=== PATIENT | male | born 1930 | race Caucasian/White ===

== ENCOUNTER 2016-05-11 15:24 | Emergency (ER) | payer MEDICARE, OTHER ==
[2016-05-11] MEDS ORDERED: ASPIRIN 81 MG TABLET, CHEWABLE PO ONE (15:33)
--- NOTE | 2016-05-11 15:33 | ER Document Report ---
ED Cardiac - General Stated Complaint: CHEST PAIN Notes: The patient is an 86-year-old male, past medical history A. fib (on diltiazem), lung cancer status post resection, presents from his primary care office after his heart rate was in the 120s. He started to develop left-sided chest pain that was resolved after 1 sublingual nitroglycerin. He received aspirin in the primary care office. He denies nausea, vomiting, shortness of breath, fevers, cough, palpitations, lightheadedness, syncope or rash. TRAVEL OUTSIDE OF THE [place] IN LAST 30 DAYS: No - Related Data Allergies/Adverse Reactions: phytonadione [Phytonadione] Allergy (Unknown, Verified 06/10/15 10:15) Hives Past Medical History - General Information source: Patient - Social History Smoking Status: Former Smoker Family History: Reviewed & Not Pertinent - Past Medical History Cardiac Medical History: Reports: Hx Atrial Fibrillation, Hx Coronary Artery Disease, Hx Heart Attack - 2015, Hx Hypercholesterolemia, Hx Hypertension Pulmonary Medical History: Reports: Hx COPD, Hx Pneumonia Malignancy Medical History: Reports Hx Lung Cancer GI Medical History: Reports: Hx Gastroesophageal Reflux Disease Musculoskeltal Medical History: Reports Hx Arthritis, Reports Hx Musculoskeletal Deformity - back problems, Reports Hx Musculoskeletal Trauma - knee injuries Past Surgical History: Reports: Hx Cardiac Surgery - 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 Denies recent illness. EENT: Denies eye, ear, throat, or mouth pain or symptoms. Denies nasal or sinus congestion. CARDIOVASCULAR: +chest pain, denies syncope, palpitations RESPIRATORY: Denies cough, cold, or chest congestion. Denies shortness of breath, difficulty breathing, or wheezing. GASTROINTESTINAL: Denies abdominal pain. Denies nausea, vomiting, or diarrhea. Denies constipation. GENITOURINARY: Denies difficulty urinating, painful urination, burning, frequency, or blood in urine. MUSCULOSKELETAL: Denies neck or back pain or joint pain or swelling. SKIN: Denies rash or skin lesions. HEMATOLOGIC: Denies easy bruising or bleeding. LYMPHATIC: Denies swollen, enlarged glands. NEUROLOGICAL: Denies altered mental status or loss of consciousness. Denies headache. Denies weakness or paralysis or loss of use of either side. Denies problems with gait or speech. Denies sensory or motor loss. PSYCHIATRIC: Denies anxiety or stress or depression. ALL OTHER SYSTEMS REVIEWED AND NEGATIVE. Physical Exam - Vital signs Vitals: Resp Pulse Ox 13 97 05/11/16 15:53 05/11/16 15:53 BP 147/92, HR 106 (irregular), RR 20, Pulse Ox 98% - Notes Notes: PHYSICAL EXAMINATION: GENERAL: Well-appearing, well-nourished and in no acute distress. HEAD: Atraumatic, normocephalic. EYES: Pupils equal round and reactive to light, extraocular movements intact, sclera anicteric, conjunctiva are normal. ENT: nares patent, oropharynx clear without exudates. Moist mucous membranes. NECK: Normal range of motion, supple without lymphadenopathy LUNGS: Breath sounds clear to auscultation bilaterally and equal. No wheezes rales or rhonchi. HEART: Tachycardic, irregularly irregular, strong distal pulses ABDOMEN: Soft, nontender, normoactive bowel sounds. No guarding, no rebound. No masses appreciated. EXTREMITIES: Normal range of motion, no pitting or edema. No cyanosis. NEUROLOGICAL: Cranial nerves grossly intact. Normal speech, normal gait. Normal sensory, motor, and reflex exams. PSYCH: Normal mood, normal affect. SKIN: Warm, Dry, normal turgor, no rashes or lesions noted. Course - Re-evaluation Re-evalutation: Patient had brief episode of chest pain that quickly resolved. A. fib with RVR resolved after an extra dose of diltiazem. 2 sets of troponins are negative. 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 Offered patient admission, but he would like to follow-up as an outpatient. Given strict return precautions and he understands. - Vital Signs Vital signs: Temp Pulse Resp BP Pulse Ox 98.7 F 16 106/69 92 05/11/16 17:03 05/11/16 17:03 05/11/16 17:03 05/11/16 17:03 - Laboratory Result Diagrams: 05/11/16 15:50 01/06/17 15:50 Laboratory results interpreted by me: 05/11/16 05/11/16 15:50 15:50 WBC 11.0 H RBC 4.02 L Hgb 12.7 L Hct 37.3 L RDW 15.5 H Seg Neutrophils % 87.2 H Lymphocytes % 5.2 L Absolute Neutrophils 9.6 H Sodium 131.8 L Chloride 96 L Creatine Kinase 51 L Total Protein 6.0 L Albumin 3.0 L - Diagnostic Test Radiology reviewed: Image reviewed, Reports reviewed - EKG Interpretation by Me EKG shows normal: QRS Complexes Rate: Tachycardia Rhythm: A.Fib Additional EKG results interpreted by me: Poor baseline. Discharge - Discharge Clinical Impression: A-fib Qualifiers: Atrial fibrillation type: paroxysmal Qualified Code(s): I48.0 - Paroxysmal atrial fibrillation Chest pain Qualifiers: Chest pain type: unspecified Qualified Code(s): R07.9 - Chest pain, unspecified Condition: Good Disposition: HOME, SELF-CARE Additional Instructions: Follow-up with your piano refinisher and primary care physician. Take your diltiazem as instructed. CHEST PAIN OF UNCLEAR CAUSE: The exact cause of your chest pain isn't clear. Fortunately, there is no evidence of a dangerous medical condition. Further testing may be required to find the source of the pain. Most often, we find that this pain is coming from the chest wall -- the muscles or rib joints in the chest. But chest pain can come from the lung and lung lining, the esophagus, the heart valves or heart lining, and even the stomach or gallbladder. Rest. Eat lightly until the pain is gone. We may prescribe medicine for pain and inflammation. You should call the physician immediately if the pain radiates to the shoulder, jaw or arms; if you start to run a fever or develop a cough; or if you develop shortness of breath, or other new or alarming symptoms. NORMAL EXAM AND WORKUP: At this time, your examination and workup show no significant abnormality. No significant abnormal physical findings were noted. All laboratory, EKG, and imaging (x-ray, CT scans, ultrasound) studies that were ordered show no significant abnormality. Although your examination and all studies that were ordered showed no significant abnormal finding, there are no examinations and no studies that are 100% accurate. There is always the possibility that some abnormality could exist and not be detected with physical examination or within the limits and capabilities of laboratory and other studies. You should return or follow up as you were instructed on your visit today for further evaluation if your symptoms do not resolve. CHEST WALL PAIN: Your chest pain may be coming from the chest wall. This is often caused by straining the muscles or joints in the chest during physical activity, direct trauma, coughing, or vigorous vomiting. Persons with arthritis are especially prone to this type of pain, due to inflammation of the cartilage joints near the breast bone. Occasionally, no cause can be found. Rest from strenuous physical activity. This kind of chest pain is usually made worse by movement of the chest. Depending on the symptoms, we may prescribe medicine for pain, muscle relaxation, and antiinflammatory effects. If the pain is new, and seems to be due to muscle strain, cold packs can help. Otherwise, apply gentle warmth to the painful area for 15 minutes every hour or two. You should call contact the doctor immediately if things change. Further evaluation is needed if you develop a fever or cough, if the nature of the pain changes, or if you become short of breath. ANGINA EPISODE: Your physician has diagnosed the pain you experienced as an episode of angina. Angina occurs when a portion of the heart muscle temporarily lacks oxygen. It does not cause any permanent heart damage, but serves as a warning. Hospitalization is not necessary now. Evaluation of your cardiac condition , and medical therapy for angina will be necessary. It's important you be sure to keep all appointments and take medication exactly as prescribed. Angina is usually treated with a type of "nitrate" medication. This is available as ointment, pills, or sublingual (under the tongue) tablets. Depending on your clinical situation, other medications may be added to help control angina. These may include beta blockers or calcium blockers. If episodes of angina are occurring with increased frequency, or if chest pain lasts longer than 15 minutes or does not respond to nitroglycerin, you must seek emergency medical care immediately. ACID REFLUX DISEASE (GERD): Gastro-Esophageal Reflux Disease (GERD) is caused by stomach acid refluxing back up into the esophagus. The valve at the end of the esophagus may be weak. This is common in persons with a hiatal hernia. GERD symptoms can include indigestion, chest pain, heartburn, or food "sticking." Certain foods, alcohol, and aspirin can make GERD worse. Treatment depends on the severity. Usually, antacids or acid-suppressing medicines are used. When the esophagus is acutely inflamed, the physician will often prescribe membrane-protective drugs such as Carafate. Some patients benefit from medication such as Reglan that tightens the valve at the top of the stomach. Avoid those foods that bring on your symptoms. For many people, these foods are coffee, chocolate, onions, garlic, and carbonated drinks. Don't use alcohol, aspirin, caffeine, or tobacco. Don't eat late at night -- within 4 hours of bedtime. Don't over-eat. If necessary, elevate the head of your bed about 4 inches so that stomach acid will not roll up into your esophagus. Call the doctor if you develop severe chest pain, inability to swallow fluids, fever, or worsening symptoms. ASPIRIN: Aspirin has been shown to have a beneficial effect on blood circulation by reducing the clotting effect of platelets in the blood. These beneficial effects can be achieved by taking just a single baby (81 mg) aspirin a day. It is recommended that any person over the age of forty take a single baby aspirin every day for heart and brain circulation, unless you are allergic to aspirin or have some significant bleeding disorder. It is strongly recommended that people who have proven cardiac or blood circulation disturbances should take a baby aspirin every day. NITRATES: Nitroglycerin and related longer-acting nitrate medications are used to prevent or treat attacks of angina. These medicines dilate blood vessels, decreasing the work of the heart, and improving its supply of oxygen. Many different forms are available, including sublingual tablets (used under the tongue), sprays, skin patches, and long-acting pills. If the particular form of medication you have been given is not working well for you, contact your doctor. Long-acting forms: Take exactly as prescribed. Sudden stopping of medication can provoke increased attacks. Sublingual tabs or spray: A headache will usually occur with use. Sit or lie while waiting for the pain to go away. If angina doesn't respond to three doses (five minutes apart), call for emergency assistance. FOLLOW-UP CARE: If you have been referred to a physician for follow-up care, call the physician s office for an appointment as you were instructed or within the next two days. If you experience worsening or a significant change in your symptoms, notify the physician immediately or return to the Emergency Department at any time for re-evaluation. Atrial Fibrillation Atrial fibrillation is an abnormal heart rhythm, caused by irregular electrical circuits in the upper heart chamber. It can be caused by heart valve disease, hardening of the arteries, or metabolic problems such as thyroid disease, or may occur without a clear cause. Atrial fibrillation may occur only occasionally, or may be chronic. Atrial fibrillation often results in a very fast heart rate, with palpitations, lightheadedness, and shortness of breath. Treatment is to slow the abnormally fast rate, and to convert the rhythm back to normal, if possible. Many patients stay in atrial fibrillation for years without symptoms or complications. Your doctor will decide whether you can be converted back to a normal heart rhythm. Contact the doctor or emergency medical system at once if you develop chest pain, shortness of breath, or severe lightheadedness, or if you develop any disturbance of consciousness, problems with speech, or localized weakness. Referrals: TIM CLAUDIO MD [Primary Care Provider] - Follow up as needed
[2016-05-11] MEDS ORDERED: DILTIAZEM HCL 180 MG CAPSULE.CR PO ONE (15:59)
[2016-05-11 16:12] LABS: ABSOLUTE LYMPHOCYTES (AUTO) 0.6 10^3/uL (0.5-4.7); ABSOLUTE MONOCYTES (AUTO) 0.8 10^3/uL (0.1-1.4); ABSOLUTE NEUT (AUTO) 9.6 10^3/uL (1.7-8.2); BASOPHILS % (AUTO) 0.4 % (0-2); EOSINOPHILS % (AUTO) 0.1 % (0-6); HEMATOCRIT 37.3 % (37.9-51.0); HEMOGLOBIN 12.7 g/dL (13.5-17.0); HGB HCT DIFFERENCE 0.8; LYMPHOCYTES % (AUTO) 5.2 % (13-45); MEAN CORPUSCULAR HEMOGLOBIN 31.6 pg (27.0-33.4); MEAN CORPUSCULAR VOLUME 93 fl (80-97); MONOCYTES % (AUTO) 7.1 % (3-13); RED BLOOD COUNT 4.02 10^6/uL (4.35-5.55); RED CELL DISTRIBUTION WIDTH 15.5 % (11.5-14.0); SEGMENTED NEUTROPHILS % (AUTO) 87.2 % (42-78)
[2016-05-11 16:30] LABS: ALANINE AMINOTRANSFERASE 47 U/L (21-72); ALKALINE PHOSPHATASE 81 U/L (38-126); ANION GAP 11 (5-19); ASPARTATE AMINO TRANSFERASE 21 U/L (17-59); BILIRUBIN,TOTAL 1.2 mg/dL (0.2-1.3); BLOOD UREA NITROGEN 17 mg/dL (7-20); CALCIUM 8.4 mg/dL (8.4-10.2); CARBON DIOXIDE 25 mmol/L (22-30); CHLORIDE 96 mmol/L (98-107); CREATINE KINASE 51 U/L (55-170); CREATININE RESULT 0.89 mg/dL (0.52-1.25); GLUCOSE 96 mg/dL (75-110); POTASSIUM 4.1 mmol/L (3.6-5.0); SODIUM 131.8 mmol/L (137-145)
--- NOTE | 2016-05-11 17:43 | EKG REPORT ---
SEVERITY:- ABNORMAL ECG - ATRIAL FIBRILLATION, V-RATE 111-144 LVH WITH IVCD, LAD AND SECONDARY REPOL ABNRM : Confirmed by: Kailey Godoy 11-May-2016 17:42:04
[2016-05-11 20:22] VITALS: BP 143/94
== END 2016-05-11 20:23 | disposition home or self-care (01) ==
LOC: ER 15:24
DX: R07.9 Chest pain, unspecified (principal); I48.0 Paroxysmal atrial fibrillation; I25.10 Atherosclerotic heart disease of native coronary artery without angina pectoris; I25.2 Old myocardial infarction; I10 Essential (primary) hypertension; Z85.118 Personal history of other malignant neoplasm of bronchus and lung; Z79.899 Other long term (current) drug therapy; Z90.2 Acquired absence of lung [part of]; Z87.891 Personal history of nicotine dependence; Z88.8 Allergy status to other drugs, medicaments and biological substances; J44.9 Chronic obstructive pulmonary disease, unspecified; Z87.01 Personal history of pneumonia (recurrent)
CPT/HCPCS: 93005; 99285; 36415; 82550; 85025; 80053; 84484; 71020; 93010; A9270

== ENCOUNTER 2016-05-22 07:06 | Day surgery (SDC) | payer MEDICARE, OTHER ==
[2016-05-22 07:59] LABS: HEMATOCRIT 36.4 % (37.9-51.0); HEMOGLOBIN 12.1 g/dL (13.5-17.0); HGB HCT DIFFERENCE -0.1; MEAN CORPUSCULAR HEMOGLOBIN 30.7 pg (27.0-33.4); MEAN CORPUSCULAR HGB CONC 33.2 g/dL (32.0-36.0); MEAN CORPUSCULAR VOLUME 92 fl (80-97); RED BLOOD COUNT 3.94 10^6/uL (4.35-5.55); RED CELL DISTRIBUTION WIDTH 14.9 % (11.5-14.0); WHITE BLOOD COUNT 7.1 10^3/uL (4.0-10.5)
[2016-05-22 08:03] LABS: PROTHROMBIN TIME 14.3 SEC (11.4-15.4)
[2016-05-22 08:04] LABS: PARTIAL THROMBOPLASTIN TIME 32.6 SEC (23.5-35.8)
[2016-05-22 08:08] LABS: BLOOD UREA NITROGEN 13 mg/dL (7-20); CREATININE RESULT 0.81 mg/dL (0.52-1.25)
[2016-05-22 10:25] VITALS: BP 112/68
== END 2016-05-22 10:31 | disposition home or self-care (01) ==
LOC: RAD 07:06
PROVIDERS: ATTEND Internal Medicine Critical Care Medicine
DX: J90 Pleural effusion, not elsewhere classified (principal); Z53.9 Procedure and treatment not carried out, unspecified reason
CPT/HCPCS: 36415; 76604; 82565; 84520; 85027; 85610; 85730

== ENCOUNTER 2016-05-28 19:45 | Emergency (ER) | payer MEDICARE, OTHER ==
[2016-05-28] MEDS ORDERED: DILTIAZEM HCL INJ 25 MG/5 ML VIAL IV ONE (20:16)
--- NOTE | 2016-05-28 20:16 | ER Document Report ---
ED Cardiac - General Mode of Arrival: Ambulatory Information source: Patient TRAVEL OUTSIDE OF THE [place] IN LAST 30 DAYS: No - HPI Patient complains to provider of: Chest pain Quality of pain: Sharp Chest pain radiation location: Back Positive cardiac history: Yes Similar symptoms previously: Yes Recently seen / treated by doctor: Yes <NILESH SOMMER - Last Filed: 05/28/16 21:02> <WESLEY MCKEON - Last Filed: 05/29/16 01:57> - General Stated Complaint: CHEST PAIN Notes: Patient is an 86-year-old male that presents to the emergency department today with complaints of chest pain. Patient states he has been having chest pain off and on for the last 2-3 weeks. 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 Patient was found to be in A. fib with RVR. He states today he took 2 nitroglycerin prior to arrival which relieved his pain today as well. Patient states the pain seems to be starting in his left lower quadrant radiating up to his chest and back. Patient has a history of a AAA that was last checked over one year ago. (NILESH SOMMER) - Related Data Allergies/Adverse Reactions: phytonadione [Phytonadione] Allergy (Unknown, Verified 05/22/16 07:23) Hives Past Medical History - General Information source: Patient, [facility] Records - Social History Smoking Status: Former Smoker Cigarette use (# per day): No Frequency of alcohol use: None Drug Abuse: None Lives with: Family Family History: Reviewed & Not Pertinent - Past Medical History Cardiac Medical History: Reports: Hx Atrial Fibrillation, Hx Coronary Artery Disease, Hx Heart Attack - 2015, Hx Hypercholesterolemia, Hx Hypertension Pulmonary Medical History: Reports: Hx COPD Malignancy Medical History: Reports Hx Lung Cancer GI Medical History: Reports: Hx Gastroesophageal Reflux Disease Musculoskeltal Medical History: Reports Hx Arthritis, Reports Hx Musculoskeletal Deformity - back problems, Reports Hx Musculoskeletal Trauma - knee injuries Past Surgical History: Reports: Hx Cardiac Surgery - 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 and 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, Hx Orthopedic Surgery - knee replacement, Hx Tonsillectomy , Hx Vascular Surgery - AAA repair - Immunizations Immunizations up to date: Yes Hx Diphtheria, Pertussis, Tetanus Vaccination: Yes Hx Pneumococcal Vaccination: 07/20/14 <NILESH SOMMER - Last Filed: 05/28/16 21:02> Review of Systems - Review of Systems Constitutional: No symptoms reported EENT: No symptoms reported Cardiovascular: See HPI, Chest pain Respiratory: No symptoms reported Gastrointestinal: See HPI, Abdominal pain Genitourinary: No symptoms reported Male Genitourinary: No symptoms reported Musculoskeletal: No symptoms reported Skin: No symptoms reported Hematologic/Lymphatic: No symptoms reported Neurological/Psychological: No symptoms reported -: Yes All other systems reviewed and negative <NILESH SOMMER - Last Filed: 05/28/16 21:02> Physical Exam - General General appearance: Appears well, Alert In distress: None - HEENT Head: Normocephalic, Atraumatic Eyes: Normal Conjunctiva: Normal - Respiratory Respiratory status: No respiratory distress Breath sounds: Normal Chest palpation: Normal - Cardiovascular Rhythm: Irregularly irregular, Tachycardia Pulses: Normal: Femoral Normal capillary refill: Yes - brisk capillary refill distally - Abdominal Tenderness: Tender - LLQ tenderness with palpation, Guarding - Back Back: Normal, Nontender - Extremities General upper extremity: Normal inspection, Nontender, Normal ROM. No: Edema General lower extremity: Normal inspection, Nontender, Normal ROM. 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 There is some sigmoid diverticular disease. There is no inflammatory stranding to suggest diverticulitis. There is no clear explanation for his left lower quadrant abdominal pain. Chest x-ray shows persistent bibasilar airspace disease with some improvement over the last few weeks. There is mild persistent pleural effusions. - EKG Interpretation by [facility] EKG shows normal: [place], Intervals Rate: Tachycardia - 134 Rhythm: A.Fib [place]/QRS: RBBB, LAHB/LAFB Voltage: Consistant with LVH When compared to previous EKG there are: No significant change - Consults Dr. Lewis Time consulted: 23:00 Consulted provider: will come to ER Dr. Isaacs Time consulted: 23:55 Consulted provider: will come to ER CLARITZA Bill Consulted provider: other - Will accept on behalf of Dr. Jorgito Jr. to the vasular surgery department. There are currently no beds available. - Transfer of Care Care transferred to following provider: Dr. Bolton <WESLEY MCKEON - Last Filed: 05/29/16 01:57> - Re-evaluation Re-evalutation: 05/29/16 01:36 The hospitalist on-call and the general surgeon utilization management rn each felt the other services should be the admitting service and neither was willing to admit the patient. Phone call was made to the [facility] where the patient was accepted by the vascular surgeon with the hospitalist offering to provide medical management of the A. fib with RVR. (WESLEY MCKEON) - Laboratory Laboratory results interpreted by me: 05/28/16 05/28/16 20:10 20:10 RBC 4.19 L Hgb 12.7 L RDW 15.3 H Chloride 96 L Carbon Dioxide 31 H ALT 20 L Creatine Kinase 42 L (WESLEY MCKEON) - Transfer of Care Notes: 05/29/16 01:56 Patient is pending transfer to the [facility] when transport becomes available. (WESLEY MCKEON) Critical Care Note - Critical Care Note Total time excluding time spent on procedures (mins): 45 <WESLEY MCKEON - Last Filed: 05/29/16 01:57> Discharge <NILESH SOMMER - Last Filed: 05/28/16 21:02> <WESLEY MCKEON - Last Filed: 05/29/16 01:57> - Discharge Clinical Impression: Atrial fibrillation with RVR, Symptomatic left iliac artery aneurysm Chest pain Qualifiers: Chest pain type: unspecified Qualified Code(s): R07.9 - Chest pain, unspecified Condition: Good Disposition: [facility] Scribe Attestation: 05/28/16 23:58 I personally performed the services described in the documentation, reviewed and edited the documentation which was dictated to the scribe in my presence, and it accurately records my words and actions. (WESLEY MCKEON) Scribe Documentation - Scribe Written by Cristino:: Cristino Alicia, [id number] 05/28/16 acting as scribe for :: Nestor <NILESH SOMMER - Last Filed: 05/28/16 21:02>
[2016-05-28] MEDS ORDERED: DILTIAZEM HCL/D5W 125 ML IV PRN (20:17)
[2016-05-28] MEDS ORDERED: NORMAL SALINE 1000 ML 1,000 ML IV ONE (20:18)
[2016-05-28 20:31] LABS: ABSOLUTE EOSINOPHILS # (AUTO) 0.1 10^3/uL (0.0-0.6); ABSOLUTE LYMPHOCYTES (AUTO) 0.8 10^3/uL (0.5-4.7); ABSOLUTE MONOCYTES (AUTO) 0.5 10^3/uL (0.1-1.4); ABSOLUTE NEUT (AUTO) 4.3 10^3/uL (1.7-8.2); BASOPHILS % (AUTO) 0.5 % (0-2); HEMATOCRIT 39.4 % (37.9-51.0); HEMOGLOBIN 12.7 g/dL (13.5-17.0); HGB HCT DIFFERENCE -1.3; LYMPHOCYTES % (AUTO) 14.3 % (13-45); MEAN CORPUSCULAR HEMOGLOBIN 30.2 pg (27.0-33.4); MEAN CORPUSCULAR HGB CONC 32.1 g/dL (32.0-36.0); MEAN CORPUSCULAR VOLUME 94 fl (80-97); MONOCYTES % (AUTO) 9.3 % (3-13); RED BLOOD COUNT 4.19 10^6/uL (4.35-5.55); RED CELL DISTRIBUTION WIDTH 15.3 % (11.5-14.0); SEGMENTED NEUTROPHILS % (AUTO) 74.9 % (42-78); WHITE BLOOD COUNT 5.7 10^3/uL (4.0-10.5)
[2016-05-28 20:35] LABS: PROTHROMBIN TIME 13.5 SEC (11.4-15.4)
[2016-05-28 20:50] LABS: ALANINE AMINOTRANSFERASE 20 U/L (21-72); ALBUMIN 3.9 g/dL (3.5-5.0); ALKALINE PHOSPHATASE 113 U/L (38-126); ANION GAP 10 (5-19); ASPARTATE AMINO TRANSFERASE 17 U/L (17-59); BILIRUBIN,TOTAL 0.6 mg/dL (0.2-1.3); BLOOD UREA NITROGEN 14 mg/dL (7-20); CALCIUM 9.4 mg/dL (8.4-10.2); CARBON DIOXIDE 31 mmol/L (22-30); CHLORIDE 96 mmol/L (98-107); CREATINE KINASE 42 U/L (55-170); CREATININE RESULT 0.88 mg/dL (0.52-1.25); GLUCOSE 90 mg/dL (75-110); MAGNESIUM 2.3 mg/dL (1.6-2.3); POTASSIUM 4.3 mmol/L (3.6-5.0); TOTAL PROTEIN 6.5 g/dL (6.3-8.2)
[2016-05-28] MEDS ORDERED: MORPHINE SULFATE 10 MG/ML INJ IV ONE ×2 (20:51→22:54)
[2016-05-28 21:01] LABS: CREATINE KINASE MB 0.88 ng/mL (<4.55)
[2016-05-28 21:03] LABS: TROPONIN I < 0.012 ng/mL
--- NOTE | 2016-05-28 23:42 | PDOC CONSULTATION ---
Consultation Consult Date: 05/28/16 Attending physician:: WESLEY MCKEON Consult reason:: Left lower quadrant pain History of Present Illness Admission Date/PCP: JOSUE CLAUDIO, History of Present Illness: GARY SUH is a 86 year old male seen emergency department after coming to the hospital by ground rescue complaining of chest pain. Patient is found to be in rapid ventricular response secondary to atrial fibrillation. Rate controlled with Cardizem drip. Patient was also complaining of left lower quadrant tenderness. Patient was imaged including CT scan of the chest abdomen and pelvis. 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 Patient's pain was controlled with narcotics. Surgery was consulted. Admission was advised for management of arrhythmia, and pain management. Patient's chest pain was similar to an episode he had 3 weeks ago at which time he was found in A. fib with rapid ventricular response, controlled with medical therapy and sent home. He was not admitted at that time. Patient denies abdominal pain similar intensity, changes in his bowel habits, changes in his a mandatory status. He now lives with his family, ambulates, does not drive. Colonoscopy within the last 10 years, Dr. hearn. Patient has a history of diverticulosis, but never hospitalized for by his report. Past Medical History Cardiac Medical History: Reports: Atrial Fibrillation, Coronary Artery Disease, Myocardial Infarction - 2015, Hyperlipidema, Hypertension Pulmonary Medical History: Reports: Chronic Obstructive Pulmonary Disease (COPD) Denies: Asthma, Bronchitis, Pneumonia Neurological Medical History: Denies: Seizures Malignancy Medical History: Reports: Lung Cancer GI Medical History: Reports: Gastroesophageal Reflux Disease Musculoskeltal Medical History: Reports: Arthritis Hematology: Denies: Anemia Past Surgical History Past Surgical History: Reports: Orthopedic Surgery - knee replacement, Tonsillectomy, Vascular Surgery - AAA repair Social History Lives with: Family Smoking Status: Former Smoker Frequency of Alcohol Use: None Hx Recreational Drug Use: No Family History Family History: Reviewed & Not Pertinent Parental Family History Reviewed: Yes Children Family History Reviewed: Yes Sibling(s) Family History Reviewed.: Yes Medication/Allergy Home Medications: Alprazolam [Xanax 0.5 mg Tablet] 0.5 mg PO QHS PRN 05/27/12 Tiotropium [place] [Spiriva Handihaler 18 mcg/dose (30 Dose)] 1 cap IH DAILY Acetaminophen [Tylenol 325 mg Tablet] 975 mg PO Q6 PRN 07/20/14 Nitroglycerin 0.4 mg SL ASDIR PRN 07/20/14 Tamsulosin HCl [Flomax] 0.4 mg PO DAILY 07/20/14 Aspirin [Aspirin 81 mg Chewable Tablet] 81 mg PO DAILY 04/18/16 Oxycodone HCl 20 mg PO QID PRN 04/18/16 Atorvastatin Calcium 40 mg PO QHS 05/22/16 Diltiazem HCl [Cardizem] 300 mg PO DAILY 05/22/16 Docusate Sodium [Colace 100 mg Capsule] 1,200 mg PO DAILY 05/22/16 Esomeprazole Mag Trihydrate [Nexium] 40 mg PO DAILY 05/22/16 Finasteride [Proscar] 5 mg PO DAILY 05/22/16 Fluticasone/Salmeterol [Advair 250-50 Diskus 14 Dose/Diskus] 1 inh IH DAILY Furosemide [Lasix 40 mg Tablet] 40 mg PO DAILY 05/22/16 Gabapentin 600 mg PO TID 05/22/16 Isosorbide Mononitrate [Imdur 60 mg Tablet.er] 60 mg PO QHS 05/22/16 Metoprolol Tartrate [Lopressor 50 mg Tablet] 25 mg PO Q12 05/22/16 Montelukast Sodium 10 mg PO QHS 05/22/16 Tamsulosin HCl [Flomax 0.4 mg Cap.sr] 0.4 mg PO DAILY 05/22/16 Allergies/Adverse Reactions: phytonadione [Phytonadione] Allergy (Unknown, Verified 05/22/16 07:23) Hives Review of Systems Constitutional: PRESENT: as per HPI Ears: PRESENT: as per HPI Gastrointestinal: PRESENT: as per HPI Genitourinary: PRESENT: as per HPI, other - Denies Neurological: PRESENT: other - Denies Physical Exam General appearance: PRESENT: no acute distress Head exam: PRESENT: normocephalic Eye exam: PRESENT: EOMI Mouth exam: PRESENT: moist Neck exam: PRESENT: full ROM Respiratory exam: PRESENT: other - Are as both chest; decreased breath sounds bilaterally Cardiovascular exam: PRESENT: other - Regular rhythm, rate approximately 100. Pulses: PRESENT: normal carotid pulses, other - Left femoral pulse diminished; right femoral pulse extremely diminished; unable to feel pulses in feet. Vascular exam: PRESENT: normal capillary refill - Refill sluggish in both feet but feet are warm. There are no ischemic changes. All digits present GI/Abdominal exam: PRESENT: other - Soft, nontender; left groin examined carefully, no focal abnormalities; minimal tenderness to deep palpation in the left pelvis. No rigidity no peritoneal signs. Her abdominal distention Rectal exam: PRESENT: deferred Neurological exam: PRESENT: alert, altered Skin exam: PRESENT: other - Scars on hands consistent with previous skin lesion surgery Results Laboratory Results: 05/28/16 20:10 05/28/16 20:10 05/28/16 05/28/16 20:10 20:10 WBC 5.7 RBC 4.19 L Hgb 12.7 L Hct 39.4 MCV 94 MCH 30.2 MCHC 32.1 RDW 15.3 H Plt Count 188 Seg Neutrophils % 74.9 Lymphocytes % 14.3 Monocytes % 9.3 Eosinophils % 1.0 Basophils % 0.5 Absolute Neutrophils 4.3 Absolute Lymphocytes 0.8 Absolute Monocytes 0.5 Absolute Eosinophils 0.1 Absolute Basophils 0.0 Sodium 137.0 Potassium 4.3 Chloride 96 L Carbon Dioxide 31 H Anion Gap 10 BUN 14 Creatinine 0.88 Est GFR ( Amer) > 60 Est GFR (Non-Af Amer) > 60 Glucose 90 Calcium 9.4 Magnesium 2.3 Total Bilirubin 0.6 AST 17 ALT 20 L Alkaline Phosphatase 113 Total Protein 6.5 Albumin 3.9 05/28/16 05/28/16 20:10 20:10 Creatine Kinase 42 L CK-MB (CK-2) 0.88 Troponin I < 0.012 Impressions: Chest X-Ray 05/28/16 20:17 IMPRESSION: Bibasilar densities as noted above Abdomen/Pelvis CT 05/28/16 20:22 IMPRESSION: Interval increase in size of the previously described aneurysm of the left common iliac artery as noted above. Multiple colonic diverticula are again identified in the sigmoid colon without CT evidence for diverticulitis. Other findings as noted above Assessment & Plan - Diagnosis (1) Left lower quadrant abdominal pain of unknown etiology Plan: 1. Acute onset, etiology you lose. Currently patient completely asymptomatic in the left lower quadrant likely due to receiving narcotics in the emergency department. I do not believe the patient is having an ischemic event to his intestines nor his left lower extremity. 2. Multiple etiologies are possible such as known iliac artery aneurysm, exacerbation of diverticular disease ,inspissation of stool; nonetheless at this moment there is no indication for surgical intervention area 3. I would suggest observation, pain management. (2) Atrial fibrillation with RVR Plan: 1. Acute superimposed on chronic, now controlled with diltiazem drip. (3) Iliac artery aneurysm, left Plan: 1. Current CT scan shows aneurysm at 4.1 cm maximal diameter, previously 3.6 cm maximum diameter som[place] 2014. No evidence of extra luminal extravasation , she-luminal inflammation etc. No free air. I don't believe the aneurysm explains the patient's abdominal pain. 2. Patient has a known ectatic lower thoracic and abdominal aorta; he is status post aneurysmorrhaphy, asystole, 2001, by fermín [place] by his report. The thoraco-and abdominal aorta appears stable. (5) Sigmoid diverticulosis Plan: 1. Known diverticular disease in this area; no radiographic evidence of acute inflammation or complicated diverticulitis. Patient may have had a microperforation, transient ischemic process or some other acute event in this area responsible for his abdominal pain. Currently the patient is completely asymptomatic but of course he just received pain medication. - Time Time Spent: 30 to 50 Minutes Critical Time spent with patient: Less than 15 minutes
[2016-05-29 02:13] VITALS: BP 132/85
[2016-05-29 03:11] LABS: APPEARANCE,URINE CLEAR; BILIRUBIN,URINE NEGATIVE (NEGATIVE); GLUCOSE, URINE NEGATIVE (NEGATIVE); KETONES,URINE NEGATIVE (NEGATIVE); LEUKOCYTE ESTERASE,URINE NEGATIVE (NEGATIVE); NITRITE,URINE NEGATIVE (NEGATIVE); PROTEIN,URINE NEGATIVE (NEGATIVE); URINE SPECIFIC GRAVITY 1.009; UROBILINOGEN,URINE NEGATIVE mg/dL (<2.0)
--- NOTE | 2016-05-29 11:46 | EKG REPORT ---
SEVERITY:- ABNORMAL ECG - ATRIAL FIBRILLATION, V-RATE 88-169 INCOMPLETE RBBB AND LAFB LVH WITH SECONDARY REPOLARIZATION ABNORMALITY ANTERIOR Q WAVES, POSSIBLY DUE TO LVH : Confirmed by: Cailin Pina MD 29-May-2016 11:45:59
== END 2016-05-29 03:18 | disposition short-term general hospital (02) ==
LOC: ER 19:45 → UNDOADMOB 05-29 00:10 → EH 05-29 00:10 → UNDODISOB 05-29 03:18 → ER 05-29 03:18
DX: I48.91 Unspecified atrial fibrillation (principal); I72.3 Aneurysm of iliac artery; R07.9 Chest pain, unspecified; K57.30 Diverticulosis of large intestine without perforation or abscess without bleeding; R10.32 Left lower quadrant pain; I25.10 Atherosclerotic heart disease of native coronary artery without angina pectoris; E78.00 Pure hypercholesterolemia, unspecified; I10 Essential (primary) hypertension; J44.9 Chronic obstructive pulmonary disease, unspecified; K21.9 Gastro-esophageal reflux disease without esophagitis; I25.2 Old myocardial infarction; Z96.659 Presence of unspecified artificial knee joint; Z85.118 Personal history of other malignant neoplasm of bronchus and lung
CPT/HCPCS: 93005; 99291; 96375; 96365; 96366; 36415; 82553; 82550; 83735; 85025; 85610; 80053; 81001; 84484; 71010; 74177; 93010; J3490 ×2; J2270; J7030

== ENCOUNTER 2016-06-17 12:51 | Emergency (ER) | payer MEDICARE, OTHER ==
[2016-06-17 13:49] LABS: ABSOLUTE EOSINOPHILS # (AUTO) 0.1 10^3/uL (0.0-0.6); ABSOLUTE LYMPHOCYTES (AUTO) 0.6 10^3/uL (0.5-4.7); ABSOLUTE MONOCYTES (AUTO) 0.6 10^3/uL (0.1-1.4); ABSOLUTE NEUT (AUTO) 4.9 10^3/uL (1.7-8.2); BASOPHILS % (AUTO) 0.4 % (0-2); EOSINOPHILS % (AUTO) 2.2 % (0-6); HEMATOCRIT 29.6 % (37.9-51.0); HEMOGLOBIN 9.9 g/dL (13.5-17.0); HGB HCT DIFFERENCE 0.1; LYMPHOCYTES % (AUTO) 9.4 % (13-45); MEAN CORPUSCULAR HEMOGLOBIN 31.6 pg (27.0-33.4); MEAN CORPUSCULAR HGB CONC 33.3 g/dL (32.0-36.0); MEAN CORPUSCULAR VOLUME 95 fl (80-97); RED BLOOD COUNT 3.12 10^6/uL (4.35-5.55); RED CELL DISTRIBUTION WIDTH 17.9 % (11.5-14.0); WHITE BLOOD COUNT 6.2 10^3/uL (4.0-10.5)
--- NOTE | 2016-06-17 14:01 | ER Document Report ---
ED Medical Screen (RME) - General Chief Complaint: Shortness Of Breath Stated Complaint: SHORTNESS OF BREATH Mode of Arrival: Medic Information source: Patient Notes: Patient presents to the emergency department with shortness of breath lower leg swelling. Patient had aortic repair last week in [place]. Patient also reports he has lung cancer both lower lobes removed and now has lung cancer in his left upper lobe. Reports he is always short of breath. Denies fever vomiting diarrhea but reports he is always nauseated. Decreased bilateral pulses. TRAVEL OUTSIDE OF THE [place] IN LAST 30 DAYS: No - Related Data Allergies/Adverse Reactions: phytonadione [Phytonadione] Allergy (Unknown, Verified 05/22/16 07:23) Hives Past Medical History - Past Medical History Cardiac Medical History: Reports: Hx Atrial Fibrillation, Hx Coronary Artery Disease, Hx Heart Attack - 2015, Hx Hypercholesterolemia, Hx Hypertension Pulmonary Medical History: Reports: Hx COPD Denies: Hx Asthma, Hx Bronchitis, Hx Pneumonia Neurological Medical History: Denies: Hx Cerebrovascular Accident, Hx Seizures Malignancy Medical History: Reports Hx Lung Cancer GI Medical History: Reports: Hx Gastroesophageal Reflux Disease Musculoskeltal Medical History: Reports Hx Arthritis, Reports Hx Musculoskeletal Deformity - back problems, Reports Hx Musculoskeletal Trauma - knee injuries Past Surgical History: Reports: Hx Cardiac Surgery - implanted monitor worker inserted and removed, Hx Orthopedic Surgery - knee replacement, Hx Tonsillectomy , Hx Vascular Surgery - AAA repair - Immunizations Immunizations up to date: Yes Hx Diphtheria, Pertussis, Tetanus Vaccination: Yes Physical Exam - Vital signs Vitals: Resp Pulse Ox 10 L 95 06/17/16 13:08 06/17/16 13:08 Course - Re-evaluation Re-evalutation: 06/17/16 14:00 I have consulted the attending provider dr zamora per [facility] guidelines - Vital Signs Vital signs: Temp Pulse Resp BP Pulse Ox 98.7 F 88 12 116/72 95 06/17/16 13:13 06/17/16 13:13 06/17/16 13:13 06/17/16 13:13 06/17/16 13:13 - Laboratory Result Diagrams: 06/17/16 13:32 06/17/16 13:32 Laboratory results interpreted by me: 06/17/16 13:32 RBC 3.12 L Hgb 9.9 L Hct 29.6 L RDW 17.9 H Seg Neutrophils % 79.0 H Lymphocytes % 9.4 L
[2016-06-17 14:08] LABS: ALANINE AMINOTRANSFERASE 28 U/L (21-72); ALBUMIN 3.2 g/dL (3.5-5.0); ALKALINE PHOSPHATASE 102 U/L (38-126); ANION GAP 7 (5-19); ASPARTATE AMINO TRANSFERASE 16 U/L (17-59); BILIRUBIN,TOTAL 1.1 mg/dL (0.2-1.3); BLOOD UREA NITROGEN 18 mg/dL (7-20); CALCIUM 8.7 mg/dL (8.4-10.2); CARBON DIOXIDE 30 mmol/L (22-30); CHLORIDE 96 mmol/L (98-107); CREATINE KINASE 32 U/L (55-170); GLUCOSE 110 mg/dL (75-110); POTASSIUM 3.5 mmol/L (3.6-5.0); SODIUM 133.3 mmol/L (137-145); TOTAL PROTEIN 5.8 g/dL (6.3-8.2)
[2016-06-17 14:20] LABS: TROPONIN I < 0.012 ng/mL
[2016-06-17 16:26] LABS: APPEARANCE,URINE CLEAR; BILIRUBIN,URINE NEGATIVE (NEGATIVE); GLUCOSE, URINE NEGATIVE (NEGATIVE); KETONES,URINE NEGATIVE (NEGATIVE); LEUKOCYTE ESTERASE,URINE NEGATIVE (NEGATIVE); NITRITE,URINE NEGATIVE (NEGATIVE); PROTEIN,URINE NEGATIVE (NEGATIVE); URINE SPECIFIC GRAVITY 1.016
--- NOTE | 2016-06-17 17:43 | EKG REPORT ---
SEVERITY:- ABNORMAL ECG - ATRIAL FIBRILLATION/FLUTTER, V-RATE 61-104 LEFT ANTERIOR FASCICULAR BLOCK LVH WITH SECONDARY REPOLARIZATION ABNORMALITY : Confirmed by: Oleg Oreilly MD 17-Jun-2016 17:42:42
[2016-06-17] MEDS ORDERED: LEVOFLOXACIN 500 MG TABLET PO ONE (18:07)
[2016-06-17] MEDS ORDERED: FUROSEMIDE INJ/PF 40 MG/4 ML SDV IV ONE (18:07)
--- NOTE | 2016-06-17 18:29 | ER Document Report ---
ED General - General Chief Complaint: Shortness Of Breath Stated Complaint: SHORTNESS OF BREATH Time seen by provider: 17:00 Mode of Arrival: Medic Information source: Patient Notes: This is an 86-year-old man with a history of COPD, atrial fibrillation, recent left iliac aneurysm repair who presents to the emergency room with worsening shortness of breath over the past few days. Patient denies any fever but he does report cough. He also states that his legs are little bit more swollen than they normally are. TRAVEL OUTSIDE OF THE [place] IN LAST 30 DAYS: No - HPI Onset: Last week Onset/Duration: Gradual Quality of pain: No pain Severity: None Pain Level: Denies Associated symptoms: Nonproductive cough, Shortness of breath. denies: Chills, Fever Exacerbated by: Denies Relieved by: Denies Similar symptoms previously: Yes Recently seen / treated by doctor: Yes - Related Data Allergies/Adverse Reactions: phytonadione [Phytonadione] Allergy (Unknown, Verified 05/22/16 07:23) Hives Past Medical History - General Information source: Patient - Social History Smoking Status: Former Smoker Cigarette use (# per day): No Chew tobacco use (# tins/day): No Frequency of alcohol use: None Drug Abuse: None Lives with: Family Family History: Reviewed & Not Pertinent Patient has suicidal ideation: No Patient has homicidal ideation: No - Past Medical History Cardiac Medical History: Reports: Hx Atrial Fibrillation, Hx Coronary Artery Disease, Hx Heart Attack - 2015, Hx Hypercholesterolemia, Hx Hypertension Pulmonary Medical History: Reports: Hx COPD Denies: Hx Asthma, Hx Bronchitis, Hx Pneumonia Neurological Medical History: Denies: Hx Cerebrovascular Accident, Hx Seizures Malignancy Medical History: Reports Hx Lung Cancer GI Medical History: Reports: Hx Gastroesophageal Reflux Disease Musculoskeltal Medical History: Reports Hx Arthritis, Reports Hx Musculoskeletal Deformity - back problems, Reports Hx Musculoskeletal Trauma - knee injuries Past Surgical History: Reports: Hx Cardiac Surgery - implanted shelter monitor inserted and removed, Hx Orthopedic Surgery - knee replacement, Hx Tonsillectomy , Hx Vascular Surgery - AAA repair - Immunizations Immunizations up to date: Yes Hx Diphtheria, Pertussis, Tetanus Vaccination: Yes Hx Pneumococcal Vaccination: 07/20/14 Review of Systems - Review of Systems Constitutional: denies: Chills, Fever EENT: No symptoms reported Cardiovascular: No symptoms reported Respiratory: See HPI Gastrointestinal: No symptoms reported Genitourinary: No symptoms reported Male Genitourinary: No symptoms reported Musculoskeletal: No symptoms reported Skin: No symptoms reported Hematologic/Lymphatic: No symptoms reported Neurological/Psychological: No symptoms reported Physical Exam - Vital signs Vitals: Resp Pulse Ox 10 L 95 06/17/16 13:08 06/17/16 13:08 Notes: Physical exam: GENERAL: 86-year-old man, alert and oriented 3, no acute distress, he is comfortable lying in the stretcher on 4 L nasal cannula: His O2 sat is 97%. The patient is normally on oxygen at home. HEAD: Atraumatic, normocephalic. EYES: Pupils equal round and reactive to light, extraocular movements intact, sclera anicteric, conjunctiva are normal. ENT: TMs normal, nares patent, oropharynx clear without exudates. Moist mucous membranes. NECK: Normal range of motion, supple without lymphadenopathy or JVD. LUNGS: Breath sounds clear to auscultation bilaterally and equal. No wheezes rales or rhonchi. HEART: Regular rate and rhythm without murmurs, rubs or gallops. ABDOMEN: Soft, normoactive bowel sounds. No tenderness to palpation. No guarding, no rebound. No masses appreciated. EXTREMITIES: 1+ edema. The left iliac aneurysm repair site looks good. There is some swelling to the area (a lower extremity Doppler showed that it was probably a hematoma). The patient does have distal pulses. There is no pain to that area. Site itself looks dry and intact, there is no overlying erythema , discharge or any evidence of infection. NEUROLOGICAL: Cranial nerves II through XII grossly intact. Normal speech, normal gait. PSYCH: Normal mood, normal affect. SKIN: Warm, Dry, normal turgor, no rashes or lesions noted. - Extremities Left calf in cm: 38 Right calf in cm: 35 Course - Re-evaluation Re-evalutation: 06/17/16 18:46 Note: I've had a long discussion with the patient (he does have a family member at the bedside). It does appear that the patient has a pneumonia and he may be slightly fluid overloaded as well. I have offered admission for her IV diuresis as well as IV antibiotics. The patient's is at home and she is in a coma near and he does not want to be here. I did give her a dose of levofloxacin orally in the emergency room and I gave him a dose of IV Lasix. I will send him home on oral levofloxacin and I've told him to double his Lasix for the next 2 days and follow-up with his doctor. He does have an appointment in [place] this week: And I've given him a copy of the ultrasound report, chest x-ray report, labs to bring during that evaluation. - Vital Signs Vital signs: Temp Pulse Resp BP Pulse Ox 98.7 F 88 10 L 164/94 H 98 06/17/16 13:13 06/17/16 13:13 06/17/16 15:01 06/17/16 18:01 06/17/16 18:01 - Laboratory Result Diagrams: 06/17/16 13:32 06/17/16 13:32 Laboratory results interpreted by me: 06/17/16 06/17/16 06/17/16 13:32 13:32 13:32 RBC 3.12 L Hgb 9.9 L Hct 29.6 L RDW 17.9 H Seg Neutrophils % 79.0 H Lymphocytes % 9.4 L Sodium 133.3 L Potassium 3.5 L Chloride 96 L AST 16 L Creatine Kinase 32 L NT-Pro-B Natriuret Pep 4810 H Total Protein 5.8 L Albumin 3.2 L Urine Blood Urine Urobilinogen 06/17/16 15:39 RBC Hgb Hct RDW Seg Neutrophils % Lymphocytes % Sodium Potassium Chloride AST Creatine Kinase NT-Pro-B Natriuret Pep Total Protein Albumin Urine Blood SMALL H Urine Urobilinogen 4.0 H - Diagnostic Test Radiology reviewed: Image reviewed, Reports reviewed - Chest x-ray shows right lower lobe pneumonia - EKG Interpretation by Me Rate: Normal Rhythm: NSR - EKG shows atrial fibrillation with a ventricular rate of 80, left anterior hemiblock, poor R-wave progression, no acute ST-T wave changes Discharge - Discharge Clinical Impression: CHF Pneumonia Qualifiers: Laterality: right Lung location: lower lobe of lung Condition: Stable Disposition: HOME, SELF-CARE Instructions: Pneumonia ([facility]), Congestive Heart Failure ([facility]) Additional Instructions: Recommendations: Rest, take current medicines. You can double up on the Lasix for 2 days. Start the levofloxacin tomorrow (you were given today's dose in the ER). Return to the emergency room for any worsening shortness of breath. Follow-up as planned this week in [place]: Bring a copy of the reports from the ultrasound, labs and x-ray with you when you go to that appointment. Prescriptions: Levofloxacin 500 mg PO DAILY #6 tablet
[2016-06-17 18:38] VITALS: BP 159/91
== END 2016-06-17 18:57 | disposition home or self-care (01) ==
LOC: ER 12:51
DX: I50.9 Heart failure, unspecified (principal); J18.9 Pneumonia, unspecified organism; R06.02 Shortness of breath; J44.9 Chronic obstructive pulmonary disease, unspecified; I48.91 Unspecified atrial fibrillation; R05 Cough; Z87.891 Personal history of nicotine dependence
CPT/HCPCS: 93005; 99285; 96374; 36415; 82553; 82550; 85025; 80053; 81001; 84484; 83880; 93971; 71010; 93010; J1940; A9270